=== PATIENT | male | born 1955 | race Caucasian/White ===

== ENCOUNTER 2017-09-18 10:21 | Emergency (ER) | payer SELFPAY ==
[2017-09-18] MEDS ORDERED: Morphine VIAL* 4 MG/ML VIAL (1 ml vial) IV ONE (11:17)
[2017-09-18] MEDS ORDERED: Ondansetron INJ* 2 MG/ML VIAL IV ONE (11:17)
--- NOTE | 2017-09-18 11:41 | RAD ---
INDICATION: Right hand injury COMPARISON: None TECHNIQUE: AP, lateral, and oblique views were obtained. FINDINGS: There is no focal bony finding. The joint spaces are maintained There is a deep laceration about the webspace between the fourth and fifth digits. There is no foreign body. IMPRESSION: LACERATION. NO FRACTURE OR FOREIGN BODY
[2017-09-18] MEDS ORDERED: ceFAZolin 1 GM in Dextrose (*) 1 GM/50 ML BAG IVPB ONE (11:57)
[2017-09-18] MEDS ORDERED: NS 0.9% 1000 ML* 1,000 ML IV ONE (11:58)
[2017-09-18] MEDS ORDERED: Bupivacaine 0.5% SDV PF* 30ML VIAL INJ ONE (12:21)
[2017-09-18] MEDS ORDERED: Lidocaine 2% 10 ML* VIAL INJ ONE (12:23)
[2017-09-18] MEDS ORDERED: Lidocaine 2% PF * 5 ML VIAL ONE (12:24)
[2017-09-18] MEDS ORDERED: HYDROmorphone INJ* 2 MG/ML CARPUJECT SYRINGE IV SLOW PU ONE (12:33)
[2017-09-18] MEDS ORDERED: Tetan/Diph/Pertus SYR(Tdap)* 0.5 ML SYR(BOOSTRIX) use SYR IM ONE ×2 (13:06→13:07)
[2017-09-18 14:00] VITALS: BP 113/67
--- NOTE | 2017-09-18 15:21 | ED ---
Upper Extremity Pain - HPI Summary HPI Summary: Patient is a left-hand dominant 61-year-old male presenting to the ED immediately following a table saw accident. Large deep laceration to the R hand between the fourth and fifth digits extending from the web space to the hypothenar space. Unable to flex the little finger. Denies pain, numbness or tingling in all other digits. Denies wrist pain. Bleeding is controlled on arrival. Hx of hyperlipidemia. Tetanus unknown. - History of Current Complaint Chief Complaint: EDLacSutureRecheck Stated Complaint: RT HAND LAC Time Seen by Provider: 09/18/17 11:03 Hx Obtained From: Patient, Family/Senior Advocate Onset/Duration: Started Hours Ago Timing: Constant Severity Initially: Moderate Severity Currently: Moderate Pain Location: Hand Character: Aching Aggravating Factor(s): Flexion - unable to flex little finger - R Alleviating Factor(s): Nothing Related History: Dominant Hand Left - Risk Factors Non-Orthopedic Risk Factor: Negative DVT Risk Factors: Negative Septic Arthritis Risk Factor: Negative Compartment Syndrome Risk Factors: Pain, Paresthesias - Allergies/Home Medications Allergies/Adverse Reactions: Allergies Allergy/AdvReac Type Severity Reaction Status Date / Time No Known Allergies Allergy Verified 09/18/17 10:53 Home Medications: Home Medications Amphetamine/Dextroamph ER(NF) [Adderal XR (NF)] 40 mg PO DAILY 09/18/17 [ History Confirmed 09/18/17] Atomoxetine(NF) [Strattera(NF)] 60 mg PO DAILY 09/18/17 [History Confirmed 09/18] Atorvastatin* [Lipitor*] 20 mg PO DAILY 09/18/17 [History Confirmed 09/18/17] Venlafaxine EXT RELEASE CAP* [Effexor Xr CAP*] 225 mg PO DAILY 09/18/17 [ History Confirmed 09/18/17] PMH/Surg Hx/FS Hx/Imm Hx Previously Healthy: Yes - Surgical History Surgery Procedure, Year, and Place: to have urethraplasty 07/08/14; previous uretha surgery 2011 - Immunization History Hx Pertussis Vaccination: No Immunizations Up to Date: Unable to Obtain/Confirm Infectious Disease History: Yes Infectious Disease History: Denies: Hx Clostridium Difficile, Hx Hepatitis, Hx Human Immunodeficiency Virus (HIV), Hx of Known/Suspected MRSA, Hx Shingles, Hx Tuberculosis, Hx Known/ Suspected VRE, Hx Known/Suspected VRSA, History Other Infectious Disease, Traveled Outside the [place] in Last 30 Days - Social History Occupation: Unemployed Lives: With Family Alcohol Use: Daily Alcohol Amount: 1 beer daily Hx Substance Use: No Substance Use Type: Reports: None Hx Tobacco Use: No Smoking Status (MU): Never Smoked Tobacco Review of Systems Constitutional: Negative Negative: Fever, Chills, Fatigue Negative: Palpitations, Chest Pain Negative: Shortness Of Breath, Cough Genitourinary: Negative Positive: no symptoms reported, see HPI Negative: Arthralgia, Myalgia Positive: Other - 6cm laceration - deep to the hypothenar space extending to the webspace of the R hand, nailbed trauma of little finger Negative: Headache, Weakness, Paresthesia Psychological: Normal All Other Systems Reviewed And Are Negative: Yes Physical Exam Triage Information Reviewed: Yes Vital Signs On Initial Exam: Initial Vitals Temp Pulse Resp BP Pulse Ox 95.6 F 69 17 100/65 99 09/18/17 10:53 09/18/17 10:53 09/18/17 10:53 09/18/17 10:53 09/18/17 10:53 Vital Signs Reviewed: Yes Appearance: Positive: Well-Appearing, Well-Nourished Skin: Positive: Warm, Skin Color Reflects Adequate Perfusion, Other - 6cm laceration - deep to the hypothenar space extending to the webspace of the R hand, nailbed trauma of little finger Head/Face: Positive: Normal Head/Face Inspection Eyes: Positive: EOMI, JUSTYN, Conjunctiva Clear Neck: Positive: Nontender, No Lymphadenopathy Respiratory/Lung Sounds: Positive: Clear to Auscultation, Breath Sounds Present Cardiovascular: Positive: RRR, Pulses are Symmetrical in both Upper and Lower Extremities Musculoskeletal: Positive: Normal Neurological: Positive: Speech Normal Psychiatric: Positive: Normal, Affect/Mood Appropriate Diagnostics - Vital Signs Vital Signs Temp Pulse Resp BP Pulse Ox 09/18/17 13:59 97.1 F 75 16 113/67 96 09/18/17 13:01 70 107/62 94 09/18/17 13:00 72 09/18/17 12:42 18 09/18/17 12:31 72 120/71 100 09/18/17 12:01 67 114/64 97 09/18/17 12:00 70 09/18/17 11:40 64 107/66 99 09/18/17 11:31 69 18 106/67 99 09/18/17 11:30 68 09/18/17 10:53 95.6 F 69 17 100/65 99 - Laboratory Lab Statement: Any lab studies that have been ordered have been reviewed, and results considered in the medical decision making process. - Radiology No standard instances Xray Interpretation: Positive (See Comments) Radiology Interpretation Completed By: Radiologist - Laceration. No fracture or foreign body. Course/Dx - Course Course Of Treatment: During the course of treatment, the patient is evaluated for deep laceration to the right palm from the hyperthenar space extending up to the web spacing of the fourth and fifth digit and extending over to the dorsal side by approximately 1 cm. Photo obtained and sent to Dr. Lopez who agrees to come see the patient in the ED immediately. Tetanus updated. Kefzol 1 g and fluids as well as Zofran and morphine given. Xray obtained. Bedside washout performed by Dr. Lopez with loose suture closure. .1 mg Dilaudid given. He will follow up with Dr. Santos in her office with likely repair within less than one week. Ulnar gutter placed. Patient denies any pain at this time. Vital signs remained stable. He is given Percocet and Keflex at this time. - Diagnoses Provider Diagnoses: Flexor tendon laceration, hand, open wound Discharge - Sign-Out/Discharge Documenting (check all that apply): Discharge/Admit/Transfer - Discharge Plan Condition: Stable Disposition: HOME Prescriptions: Cephalexin CAP* [Keflex CAP*] 500 mg PO QID #28 cap MDD 4 Cephalexin CAP* [Keflex CAP*] 500 mg PO QID #20 cap MDD 4 oxyCODONE/Acetamin 10/325(NF) [Percocet 10/325 (NF)] 1 tab PO QID #12 tab MDD 4 oxyCODONE/Acetamin 10/325(NF) [Percocet 10/325 (NF)] 1 tab PO QID #16 tab MDD 4 Patient Education Materials: Tendon Laceration (ED) Referrals: Yin Lee MD [Primary Care Provider] - Desirae Santos MD [Medical Doctor] - Additional Instructions: Please follow up with Dr. Santos on Saturday Call TOMORROW Percoset up to four times daily for pain Keflex four times daily - Billing Disposition and Condition Condition: STABLE Disposition: Home
--- NOTE | 2017-09-18 21:11 | CONS ---
ORTHOPEDIC CONSULTATION AND PROCEDURE NOTE: DATE OF CONSULT: 09/18/17 LOCATION: This is an orthopedic consultation in the emergency room. CHIEF COMPLAINT: Right hand pain and laceration. HISTORY OF PRESENT ILLNESS: Mr. Doty is a 61-year-old left-hand dominant male , who was using a table saw when he sustained a cutting injury to his right hand. He immediately had pain and an obvious laceration. This is 6/10 pain. He was unable to move his pinky finger and came immediately to [facility] Emergency Room. I was consulted by emergency room provider for orthopedic care. The patient reports he is left-hand dominant. He is in moderate pain at this time. He does have some numbness along the pinky finger. He denies any injury elsewhere. PAST MEDICAL HISTORY: Hypercholesterolemia, history of urethral stricture, depression, and sleep apnea. PAST SURGICAL HISTORY: Urethral stricture surgery, unspecified type urology procedure. CURRENT MEDICATIONS: 1. Effexor 75 mg p.o. daily. 2. Adderall 20 mg p.o. b.i.d. 3. Strattera 100 mg p.o. daily. 4. [place] 300 mg p.o. daily based on old medical records. ALLERGIES: No known drug allergies. FAMILY HISTORY: None. SOCIAL HISTORY: The patient lives with his . 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 No tobacco or recreational drug use. Minimal alcohol use. REVIEW OF SYSTEMS: Positive for the right hand laceration and pain. Negative for fever, chills, chest pain, shortness of breath, nausea, vomiting, headache, or dizziness. Otherwise review of systems is negative or not relevant. PHYSICAL EXAM: Vitals: Temperature 97.1, pulse 75, blood pressure 113/67. General: The patient is a well-nourished male, in no apparent distress. Alert and oriented x3. Pleasant mood and appropriate affect, accompanied by supportive . HEENT: Atraumatic, normocephalic. Pupils equal and reactive to light. Chest: Unlabored breathing. Right upper extremity: The patient's skin has a large laceration along the entire palm in the interspace between the fourth and fifth finger. This runs the length of the palm and is quite deep. This curves around the interspace. This longitudinal laceration is approximately 10 cm in length. He also has portion of his nail hanging off with visible nail bed injury. There is visible tendon and muscle in the laceration. There is no visible dirt in the laceration. He cannot flex at the DIP or PIP. He does show some flexion at the MCP. He can fully extend the finger. He can abduct, but cannot adduct. He has decreased sensation along the interspace, ulnar surface of his palm, as well as the radial aspect of the fifth finger. He has a 2+ palpable radial pulse proximally. No other visible flexion or extension deficits in the thumb, index, long, or ring finger. DIAGNOSTIC STUDIES: Radiographs: Multiple plain films of the right hand showed no obvious bony fracture or injury. The laceration is evident. ASSESSMENT AND PLAN: Mr. Doty is a 61-year-old left-hand dominant male with table saw laceration to his right hand along the majority of his ulnar palm. He does have obvious flexor tendon injury, obvious nerve injury, and muscle injury as well. There is no significant bleeding from the wound at this time. We discussed my findings based on physical exam. I have contacted one of our hand specialists, Dr. Santos, who agrees to see the patient in clinic tomorrow morning and possibly operate within 48 hours on 09/20. I offered this plan to the patient and I also offered a transfer to tertiary care facility with a hand specialist field education director. At this time, the patient would like to stay in [place]. He agrees to have me wash out the hand at the bedside with a loose closure and a sterile dressing with splint. The patient and his understand the risks and benefits of washout at the bedside with wound closure and splinting. They would like to proceed. Their questions are answered. PROCEDURE NOTE: At the bedside, the patient's entire right hand was prepped with Betadine. 10 cc of 1% lidocaine was used for local anesthetic around the incision and near the nail bed. I did allow the lidocaine to set up and the patient reported some significant anesthetic sensation around the ulnar aspect of his hand. He was given 1 mg of IV Dilaudid for additional pain control. The patient's incision was copiously irrigated with 1 L of sterile saline using a 20 cc syringe. I was able to use forceps to open up the incision and obtain good washout. There was no visible dirt or debris. There was visible torn tendon as well as muscle. After a thorough washout, the nail bed was washed out; a portion of the patient' s nail was hanging and was removed. There was a visible nail bed injury. Using 4-0 nylon suture, the laceration was loosely closed and reapproximated. Sterile Xeroform was used to cover the patient's nail injury and the entire incision. Sterile 4x4s and Webril were used to cover the lacerations. An ulnar gutter splint was applied with an Manolo wrap. The patient has been given IV Ancef while in the hospital. He will be discharged on Keflex. He has received tetanus booster. He will follow up with Dr. Santos in the a.m. tomorrow. He is given the office number and appropriate instructions on elevation and nonweightbearing. He will have Percocet for pain control. He will call with any questions. [id number]/[facility] #: [id number] MTDD
== END 2017-09-18 13:59 | disposition home or self-care (01) ==
LOC: ED 10:21
DX: S66.129A Laceration of flexor muscle, fascia and tendon of unspecified finger at wrist and hand level, initial encounter (principal); S61.411A Laceration without foreign body of right hand, initial encounter; E78.5 Hyperlipidemia, unspecified; W31.2XXA Contact with powered woodworking and forming machines, initial encounter; Y92.9 Unspecified place or not applicable; E78.00 Pure hypercholesterolemia, unspecified; F32.9 Major depressive disorder, single episode, unspecified; G47.30 Sleep apnea, unspecified
CPT/HCPCS: 12001; 90471; 90715; 93005; 96360; 96374; 96375; 99283; J0690; J1170; J2270; J2405

== ENCOUNTER 2017-09-20 08:46 | Day surgery (SDC) | payer SELFPAY ==
--- NOTE | 2017-09-19 21:02 | HP ---
CC: Dr. Santos* PREOPERATIVE HISTORY AND PHYSICAL: DATE OF ADMISSION/OPERATION: 09/20/17. CHIEF COMPLAINT: Right hand pain. HISTORY OF PRESENT ILLNESS: Aris is a 61-year-old man, who accidently cut his right hand with a table-saw. He has a large laceration across the palm of his hand and lack of sensation on the radial border of the small finger and he cannot move his right small finger. He was seen in the emergency department yesterday, and x- rays were taken, which were negative for any fractures. The wound was clean. He was placed on an oral antibiotic and oxycodone and he is here for followup evaluation. He rates his pain as a 3/10. PAST MEDICAL HISTORY: Significant for high cholesterol, depression, sleep apnea. PAST SURGICAL HISTORY: Significant for urethroplasty and prostate surgery. He has no history of anesthesia reaction. MEDICATIONS: 1. Adderall 40 mg daily. 2. Strattera 60 mg daily. 3. Effexor XR 225 mg daily. 4. Atorvastatin and calcium 20 mg p.o. daily. 5. Oxycodone with acetaminophen. 6. An oral antibiotic, he does not know the name of. DRUG ALLERGIES: None. FAMILY HISTORY: Significant for diabetes and hypertension. SOCIAL HISTORY: He lives with his . He is a digital computer operator. He denies tobacco use. He has about one alcoholic beverage on an average day. He is left- hand dominant. REVIEW OF SYSTEMS: Negative for cephalic, cardiovascular, respiratory, gastrointestinal, genitourinary, other musculoskeletal, skin, neurologic, endocrine, and hematologic symptoms. PHYSICAL EXAMINATION GENERAL: He is a healthy-appearing, very pleasant man in minimal distress at rest. EXTREMITIES: On exam of his right hand, there is a large longitudinal laceration on the whole length of his palm. He has no active flexion of the small finger. He has no sensation on the radial border of the small finger, but he does have sensation on the ulnar border. He also has a nail bed injury of the small finger. NEUROLOGICAL: He ambulates without a limp. He has no obvious neurologic deficits. He is alert and oriented. IMPRESSION: Right hand laceration with flexor tendon laceration to the small finger, nail bed injury and a digital nerve laceration. PLAN: Plan is for operative treatment for flexor tendon repair, digital nerve repair, and nail bed repair. This will be done in the operating room tomorrow. Surgical procedure, risks, and benefits were explained to the patient and he agrees to proceed. I will see him back in followup approximately 10 days postop. He was given a prescription and appointment to see Feliz Diego for fabrication of an Orthoplast splint today. [id number]/[facility] #: [id number] MTDD
[~2017-09-20 08:46] MED LIST: Buffered Lidocaine 0.9% SYRIN* 5 ML/SYR SYRINGE INTRADERM ONE
[2017-09-20] MEDS ORDERED: fentaNYL* 50 MCG/ML 2 ML VIAL (100 MCG VIAL) ONE ×3 (10:01→12:34)
[2017-09-20] MEDS ORDERED: Midazolam* 1 MG/ML 2 ML VIAL (2 MG) ONE (10:01)
[2017-09-20] MEDS ORDERED: Lidocaine 2% PF * 5 ML VIAL ONE (10:25)
[2017-09-20] MEDS ORDERED: Propofol* 10 MG/ML 20 ML BTL IV PUSH ONE (10:25)
[2017-09-20] MEDS ORDERED: Bupivacaine 0.5%* 50 ML VIAL ONE (10:29)
[2017-09-20] MEDS ORDERED: Phenylephrine INJ* 10 MG/ML 1 ML VIAL (10 MG) ONE (10:47)
[2017-09-20] MEDS ORDERED: Phenylephrine IV* 40 MCG/ML 10 ML SYRINGE ONE (10:50)
[2017-09-20] MEDS ORDERED: fentaNYL* 50 MCG/ML 2 ML VIAL (100 MCG VIAL) IV PRN (11:11)
[2017-09-20] MEDS ORDERED: Naloxone* 0.4 MG/ML 1 ML VIAL IV PRN (11:11)
[2017-09-20] MEDS ORDERED: Ondansetron INJ* 2 MG/ML VIAL IV PRN (11:11)
[2017-09-20] MEDS ORDERED: DiMENhydriNATE IV* 50 MG/ML VIAL IV PUSH PRN (11:11)
[2017-09-20] MEDS ORDERED: Dexamethasone IV* 4 MG/ML 1 ML (4 MG) ONE (11:13)
[2017-09-20] MEDS ORDERED: Ondansetron INJ* 2 MG/ML VIAL ONE (11:13)
[2017-09-20] MEDS ORDERED: Ketorolac INJ* 30 MG/ML 1 ML VIAL ONE (11:16)
[2017-09-20] MEDS ORDERED: oxyCODONE/Acetamin 5/325 MG* TAB ONE (12:34)
[2017-09-20] MEDS ORDERED: HYDROcodone/ACETAMIN 5-325 MG* 1 TAB ONE (12:37)
[2017-09-20 13:48] VITALS: BP 137/69
--- NOTE | 2017-09-21 00:28 | OP ---
DATE OF OPERATION: 09/20/17 [facility] DATE OF : 53. SURGEON: Desirae Santos MD. HYPERION DEVELOPER: SHARRON Grigsby. ANESTHESIA: General. PRE-OP DIAGNOSIS: Table saw injury of the right hand with a radial digital nerve laceration, nail bed laceration and flexor tendon laceration, small finger. POST-OP DIAGNOSIS: Table saw injury of the right hand with a radial digital nerve laceration, nail bed laceration and flexor tendon laceration, small finger. OPERATIVE PROCEDURE: Right wound exploration, intermetacarpal ligament repair, flexor digitorum profundus repair and nail bed repair. ESTIMATED BLOOD LOSS: Zero. TOURNIQUET TIME: 61 minutes. INDICATIONS FOR PROCEDURE: Aris is a 61-year-old man, who injured his right hand with a table saw. Two days ago, he has no flexion and motion of the small finger and obvious gross instability of the finger and also no sensation on the radial border of the small finger. The remainder of his hand function is intact. He has a laceration extending from the wrist crease to the web space between the ring and small fingers. He presents for digital nerve repair, flexor tendon repair and nail bed repair. DESCRIPTION OF PROCEDURE: The patient was brought to the operating room, was given a general anesthetic, placed in supine position on the operating table with a tourniquet around his right upper arm. The skin of his right upper extremity was prepped and draped in the usual sterile fashion. The hand and forearm were exsanguinated and then the tourniquet elevated to 250 mmHg. The sutures were removed and the wound was explored. There was complete laceration through dorsal and volar aspects of the intermetacarpal ligaments. There was complete laceration of the FDS and FDP tendons of the small finger. The radial digital nerve to the small finger was lacerated. There was a very large portion of the nerve missing. The gap was greater than 3 cm and there was a transverse laceration of the nail bed. The wound was extended proximally and the proximal portion of the FDP tendon was located and then the flexor digitorum profundus was repaired with 4-strand core suture of 4-0 Prolene and a 6-0 epitendinous suture with 6-0 nylon. Next, the intermetacarpal ligament was repaired with 2-0 Ethibond suture. This stabilized the finger significantly, it was decided because of the patient's age and the gap in the nerve and because of the radial border of the small finger, I am not to pursue repair or conduit repair of the digital nerve. The nail bed was repaired with 5-0 Monocryl suture. The wound was copiously irrigated with saline. The skin edges were reapproximated 4-0 nylon suture and the wound was dressed with Xeroform, 4x4, Webril and a dorsal extension blocking splint. The patient tolerated the procedure well and was brought to the recovery room in good condition. [id number]/[facility] #: [id number] MTDJihan
== END 2017-09-20 13:04 | disposition home or self-care (01) ==
LOC: OREAST 08:46
PROVIDERS: ATTEND Orthopaedic Surgery
DX: S66.126A Laceration of flexor muscle, fascia and tendon of right little finger at wrist and hand level, initial encounter (principal); S61.316A Laceration without foreign body of right little finger with damage to nail, initial encounter; S64.496A Injury of digital nerve of right little finger, initial encounter; W31.2XXA Contact with powered woodworking and forming machines, initial encounter; Y92.9 Unspecified place or not applicable; E78.00 Pure hypercholesterolemia, unspecified; G47.33 Obstructive sleep apnea (adult) (pediatric); N35.9 Urethral stricture, unspecified; Z68.30 Body mass index [BMI] 30.0-30.9, adult; F32.9 Major depressive disorder, single episode, unspecified
CPT/HCPCS: A9270-GY; J1100; J1885; J2250; J2405; J2704; J3010